=== PATIENT | male | born 1960 | race African-American/Black ===

== ENCOUNTER 2021-02-10 14:13 | Inpatient (IN) | payer OTHER ==
[2021-02-10 14:49] VITALS: BMI 27.6
[2021-02-10] MEDS ORDERED: BISMUTH SUBSALICYLATE 524 MG/30 ML PO PRN (16:37)
[2021-02-10] MEDS ORDERED: MAG HYDROX/AL HYDROX/SIMETH 30 ML UNIT-DOSE CUP PO PRN (16:37)
[2021-02-10] MEDS ORDERED: METHADONE HCL 10 MG TABLET (FOR DETOX USE ONLY) PO ONE (16:37)
[2021-02-10] MEDS ORDERED: diazePAM 5 MG TABLET PO PRN (16:37)
[2021-02-10] MEDS ORDERED: METHOCARBAMOL 500 MG TABLET PO PRN (16:37)
[2021-02-10] MEDS ORDERED: cloNIDine HCL 0.1 MG TABLET PO PRN (16:37)
[2021-02-10] MEDS ORDERED: NICOTINE POLACRILEX 2 MG GUM BUC PRN (16:37)
[2021-02-10] MEDS ORDERED: MAGNESIUM HYDROX 2400MG/30ML ORAL SUSPENSION 30 ML CUP PO PRN (16:37)
[2021-02-10] MEDS ORDERED: MENTHOL/PHENOL 1 EACH UD MM PRN (16:37)
[2021-02-10] MEDS ORDERED: ACETAMINOPHEN 325 MG TABLET (FP) PO PRN ×2 (16:37)
[2021-02-10] MEDS ORDERED: MAGNESIUM CITRATE 300 ML BOTTLE PO PRN (16:37)
[2021-02-10] MEDS ORDERED: IBUPROFEN 400 MG TABLET (FP) PO PRN (16:37)
[2021-02-10] MEDS ORDERED: NALOXONE HCL 0.4 MG/ML VIAL IM PRN (16:37)
[2021-02-10] MEDS: diazePAM 5 MG TABLET PO SCH ×2 (18:34→22:19)
[2021-02-10] MEDS ORDERED: MELATONIN 5 MG TABLETS PO SCH (22:00)
[2021-02-10] MEDS: THIAMINE HCL 100 MG TABLET (FP) PO SCH (22:19)
[2021-02-10] MEDS ORDERED: TRIMETHOBENZAMIDE HCL 200MG/2ML INJ IM ONE (22:55)
[2021-02-10] MEDS ORDERED: HYDROCORTISONE 1% TOPICAL CREAM 30 GM TUBE TP PRN (22:57)
[2021-02-11] MEDS: diazePAM 5 MG TABLET PO SCH ×4 (05:46→22:35)
[2021-02-11 09:29] LABS: HEMATOCRIT 42.9 % (35.4-49); HEMOGLOBIN 14.7 GM/dL (11.7-16.9); MCH 29.3 pg (25.7-33.7); MCHC 34.2 g/dl (32.0-35.9); MEAN CELL VOLUME 85.8 fl (80-96); MEAN PLT VOLUME 9.7 fl (7.5-11.1); PLATELET COUNT 175 10^3/uL (134-434); RDW 14.3 % (11.9-15.9)
[2021-02-11] MEDS ORDERED: METHADONE HCL 5 MG TABLET (FOR DETOX USE ONLY) ONE (09:32)
[2021-02-11] MEDS ORDERED: METHADONE HCL 10 MG TABLET (FOR DETOX USE ONLY) ONE (09:32)
[2021-02-11] MEDS ORDERED: METHADONE (DETOX) 20 MG, METHADONE (DETOX) 5 MG PO ONE (10:00)
[2021-02-11 10:04] LABS: CALCIUM 8.6 mg/dL (8.5-10.1)
[2021-02-11 10:05] LABS: ALBUMIN 3.5 g/dl (3.4-5.0); BLOOD UREA NITROGEN 14.6 mg/dL (7-18)
[2021-02-11 10:10] LABS: BILIRUBIN,TOTAL 0.7 mg/dL (0.2-1); TOT PROT 6.3 g/dl (6.4-8.2)
[2021-02-11] MEDS ORDERED: MELATONIN 5 MG TABLETS PO PRN ×2 (10:18→10:46)
[2021-02-11] MEDS: PRENATAL VITAMINS W/ FOLIC ACID TABLET (FP) PO SCH (10:31)
[2021-02-11] MEDS: NICOTINE 7 MG/24 HOURS TOPICAL PATCH TD SCH (10:34)
[2021-02-11] MEDS: amLODIPine BESYLATE 10 MG TABLET (FP) PO SCH (15:46)
[2021-02-11] MEDS: THIAMINE HCL 100 MG TABLET (FP) PO SCH (22:35)
[2021-02-12] MEDS: diazePAM 5 MG TABLET PO SCH ×3 (06:08→23:05)
[2021-02-12] MEDS: NICOTINE 7 MG/24 HOURS TOPICAL PATCH TD SCH (09:22)
[2021-02-12] MEDS: amLODIPine BESYLATE 10 MG TABLET (FP) PO SCH (09:22)
[2021-02-12] MEDS: PRENATAL VITAMINS W/ FOLIC ACID TABLET (FP) PO SCH (09:23)
[2021-02-12] MEDS ORDERED: METHADONE HCL 10 MG TABLET (FOR DETOX USE ONLY) PO ONE (10:00)
[2021-02-12] MEDS: THIAMINE HCL 100 MG TABLET (FP) PO SCH (23:05)
[2021-02-13] MEDS ORDERED: diazePAM 5 MG TABLET PO SCH (06:00)
[2021-02-13] MEDS: amLODIPine BESYLATE 10 MG TABLET (FP) PO SCH (09:10)
[2021-02-13] MEDS: PRENATAL VITAMINS W/ FOLIC ACID TABLET (FP) PO SCH (09:11)
[2021-02-13] MEDS: NICOTINE 7 MG/24 HOURS TOPICAL PATCH TD SCH (09:12)
[2021-02-13 09:25] VITALS: TEMP 97
[2021-02-13 09:56] VITALS: BP 125/92; PULSE 92
[2021-02-13] MEDS ORDERED: METHADONE (DETOX) 10 MG, METHADONE (DETOX) 5 MG PO ONE (10:00)
[2021-02-14] MEDS ORDERED: diazePAM 5 MG TABLET PO ONE (06:00)
[2021-02-14] MEDS ORDERED: METHADONE HCL 10 MG TABLET (FOR DETOX USE ONLY) PO ONE (10:00)
[2021-02-15] MEDS ORDERED: METHADONE HCL 5 MG TABLET (FOR DETOX USE ONLY) PO ONE (06:00)
== END 2021-02-13 09:45 | disposition home or self-care (01) | DRG 773 ==
LOC: YASAS 14:13 → Y6N 16:33
PROVIDERS: ADMIT Allergy & Immunology; ATTEND Allergy & Immunology
PROC: HZ2ZZZZ Detoxification Services for Substance Abuse Treatment (ICD-10-PCS; principal; 2021-02-10)
DX: F10.230 Alcohol dependence with withdrawal, uncomplicated (principal); F11.23 Opioid dependence with withdrawal; F14.20 Cocaine dependence, uncomplicated; F12.10 Cannabis abuse, uncomplicated; F17.213 Nicotine dependence, cigarettes, with withdrawal; F19.24 Other psychoactive substance dependence with psychoactive substance-induced mood disorder; E78.2 Mixed hyperlipidemia; E11.9 Type 2 diabetes mellitus without complications; I10 Essential (primary) hypertension; K21.9 Gastro-esophageal reflux disease without esophagitis; M19.90 Unspecified osteoarthritis, unspecified site; Z20.2 Contact with and (suspected) exposure to infections with a predominantly sexual mode of transmission; Z98.890 Other specified postprocedural states
CPT/HCPCS: 36415; 71046-TC-FY; 80053; 85027; 86593; 86780; 93005; 93010; C9803; U0003; U0005

== ENCOUNTER 2021-11-19 15:07 | Inpatient (IN) | payer OTHER ==
[2021-11-19] MEDS ORDERED: guaiFENesin 200 MG/10 ML 10 ML UNIT-DOSE CUPS PO PRN (17:28)
[2021-11-19] MEDS ORDERED: MAGNESIUM HYDROX 2400MG/30ML ORAL SUSPENSION 30 ML CUP PO PRN (17:28)
[2021-11-19] MEDS ORDERED: NICOTINE 10 MG CARTRIDGE (INHALER) IH PRN (17:28)
[2021-11-19] MEDS ORDERED: MAGNESIUM CITRATE 300 ML BOTTLE PO PRN (17:28)
[2021-11-19] MEDS ORDERED: P-EPHED 60MG/TRIPROLIDI 2.5MG TABLET PO PRN (17:28)
[2021-11-19] MEDS ORDERED: LOPERAMIDE HCL 2 MG CAPSULE PO PRN (17:28)
[2021-11-19] MEDS ORDERED: MAG HYDROX/AL HYDROX/SIMETH 30 ML UNIT-DOSE CUP PO PRN (17:28)
[2021-11-19] MEDS ORDERED: NICOTINE POLACRILEX 2 MG GUM BC PRN (17:28)
[2021-11-19 21:29] VITALS: BMI 27.6
[2021-11-19] MEDS: THIAMINE HCL 100 MG TABLET (FP) PO SCH (22:08)
[2021-11-19] MEDS: hydrOXYzine PAMOATE 25 MG CAPSULE (FP) PO PRN (22:09)
[2021-11-19] MEDS: MELATONIN 5 MG TABLETS PO PRN (22:09)
[2021-11-20] MEDS: metFORMIN HCL 500 MG TABLET (FP) PO SCH ×2 (06:45→16:50)
[2021-11-20] MEDS: IBUPROFEN 400 MG TABLET (FP) PO PRN ×2 (08:09→16:50)
[2021-11-20] MEDS: PRENATAL VITAMINS W/ FOLIC ACID TABLET (FP) PO SCH (09:57)
[2021-11-20] MEDS: amLODIPine BESYLATE 10 MG TABLET (FP) PO SCH (09:57)
[2021-11-20] MEDS ORDERED: SERTRALINE HCL 50 MG TABLET (FP) PO ONE (11:26)
[2021-11-20] MEDS: LIDOCAINE 5% TOPICAL PATCH TP SCH (14:25)
[2021-11-20] MEDS: BACITRACIN 0.9 GM PACKET TP SCH (16:52)
[2021-11-20 17:10] LABS: CALCIUM 9.5 mg/dL (8.5-10.1)
[2021-11-20 17:11] LABS: ALBUMIN 3.6 g/dl (3.4-5.0); BLOOD UREA NITROGEN 18.6 mg/dL (7-18); HEMATOCRIT 47.5 % (35.4-49); HEMOGLOBIN 15.9 GM/dL (11.7-16.9); MCH 28.8 pg (25.7-33.7); MCHC 33.5 g/dl (32.0-35.9); MEAN PLT VOLUME 9.9 fl (7.5-11.1); PLATELET COUNT 215 10^3/uL (134-434); RBC 5.52 M/mm3 (4.00-5.60); RDW 14.6 % (11.9-15.9)
[2021-11-20 17:14] LABS: CREATININE 1.4 mg/dL (0.55-1.3)
[2021-11-20 17:16] LABS: BILIRUBIN,TOTAL 0.6 mg/dL (0.2-1)
[2021-11-20] MEDS: THIAMINE HCL 100 MG TABLET (FP) PO SCH (21:22)
[2021-11-20] MEDS: LIDOCAINE PATCH REMOVAL MC SCH (21:22)
[2021-11-20] MEDS: hydrOXYzine PAMOATE 25 MG CAPSULE (FP) PO PRN (21:23)
[2021-11-20] MEDS: MELATONIN 5 MG TABLETS PO PRN (21:23)
[2021-11-21] MEDS: metFORMIN HCL 500 MG TABLET (FP) PO SCH ×2 (06:32→16:51)
[2021-11-21] MEDS: LIDOCAINE 5% TOPICAL PATCH TP SCH (09:53)
[2021-11-21] MEDS: amLODIPine BESYLATE 10 MG TABLET (FP) PO SCH (09:53)
[2021-11-21] MEDS: PRENATAL VITAMINS W/ FOLIC ACID TABLET (FP) PO SCH (09:53)
[2021-11-21] MEDS: SERTRALINE HCL 50 MG TABLET (FP) PO SCH (09:54)
[2021-11-21] MEDS: hydrOXYzine PAMOATE 25 MG CAPSULE (FP) PO PRN ×2 (09:55→21:30)
[2021-11-21] MEDS: IBUPROFEN 400 MG TABLET (FP) PO PRN (09:55)
[2021-11-21] MEDS: BACITRACIN 0.9 GM PACKET TP SCH (10:06)
[2021-11-21 10:13] LABS: EPI CELLS 12 /uL (0-25.1); HYALINE CASTS 2 /uL (0-3.1); URINE APPEARANCE CLEAR; URINE BACTERIA 31 /uL (0-1359); URINE BILIRUBIN NEGATIVE (NEGATIVE); URINE COLOR YELLOW; URINE GLUCOSE (UA) NEGATIVE (NEGATIVE); URINE KETONE NEGATIVE (NEGATIVE); URINE LEUK ESTERASE TRACE (NEGATIVE); URINE NITRITE NEGATIVE (NEGATIVE); URINE PROTEIN NEGATIVE (NEGATIVE); URINE RBC 11 /uL (0-23.9); URINE UROBILINOGEN 0.2 mg/dL (0.2-1.0); URINE WBC 44 /uL (0-25.8)
[2021-11-21] MEDS: ACETAMINOPHEN 325 MG TABLET (FP) PO PRN (15:45)
[2021-11-21] MEDS: LIDOCAINE PATCH REMOVAL MC SCH (21:29)
[2021-11-21] MEDS: MELATONIN 5 MG TABLETS PO PRN (21:30)
[2021-11-21] MEDS: THIAMINE HCL 100 MG TABLET (FP) PO SCH (21:30)
[2021-11-22] MEDS: metFORMIN HCL 500 MG TABLET (FP) PO SCH ×2 (06:45→16:28)
[2021-11-22] MEDS: BACITRACIN 0.9 GM PACKET TP SCH (10:37)
[2021-11-22] MEDS: PRENATAL VITAMINS W/ FOLIC ACID TABLET (FP) PO SCH (10:40)
[2021-11-22] MEDS: LIDOCAINE 5% TOPICAL PATCH TP SCH (10:40)
[2021-11-22] MEDS: SERTRALINE HCL 50 MG TABLET (FP) PO SCH (10:41)
[2021-11-22] MEDS: amLODIPine BESYLATE 10 MG TABLET (FP) PO SCH (10:41)
[2021-11-22] MEDS: IBUPROFEN 400 MG TABLET (FP) PO PRN (10:42)
[2021-11-22] MEDS: MELATONIN 5 MG TABLETS PO PRN (21:07)
[2021-11-22] MEDS: THIAMINE HCL 100 MG TABLET (FP) PO SCH (21:07)
[2021-11-22] MEDS: METHOCARBAMOL 500 MG TABLET PO PRN (21:07)
[2021-11-22] MEDS: hydrOXYzine PAMOATE 25 MG CAPSULE (FP) PO PRN (21:08)
[2021-11-22] MEDS: LIDOCAINE PATCH REMOVAL MC SCH (21:08)
[2021-11-23] MEDS: metFORMIN HCL 500 MG TABLET (FP) PO SCH ×2 (06:26→17:18)
[2021-11-23] MEDS: PRENATAL VITAMINS W/ FOLIC ACID TABLET (FP) PO SCH (09:58)
[2021-11-23] MEDS: BACITRACIN 0.9 GM PACKET TP SCH (09:58)
[2021-11-23] MEDS: amLODIPine BESYLATE 10 MG TABLET (FP) PO SCH (09:59)
[2021-11-23] MEDS: LIDOCAINE 5% TOPICAL PATCH TP SCH (09:59)
[2021-11-23] MEDS: SERTRALINE HCL 50 MG TABLET (FP) PO SCH (09:59)
[2021-11-23] MEDS: METHOCARBAMOL 500 MG TABLET PO PRN (10:01)
[2021-11-23] MEDS: IBUPROFEN 400 MG TABLET (FP) PO PRN (10:01)
[2021-11-23] MEDS: hydrOXYzine PAMOATE 25 MG CAPSULE (FP) PO PRN ×2 (10:01→21:21)
[2021-11-23] MEDS: LIDOCAINE PATCH REMOVAL MC SCH (21:21)
[2021-11-23] MEDS: THIAMINE HCL 100 MG TABLET (FP) PO SCH (21:21)
[2021-11-23] MEDS: MELATONIN 5 MG TABLETS PO PRN (21:21)
[2021-11-24 00:07] LABS: SARS-CoV-2 NAA Not Detected (Not Detected)
[2021-11-24] MEDS: metFORMIN HCL 500 MG TABLET (FP) PO SCH ×2 (06:15→16:57)
[2021-11-24] MEDS: BACITRACIN 0.9 GM PACKET TP SCH (10:14)
[2021-11-24] MEDS: LIDOCAINE 5% TOPICAL PATCH TP SCH (10:14)
[2021-11-24] MEDS: PRENATAL VITAMINS W/ FOLIC ACID TABLET (FP) PO SCH (10:14)
[2021-11-24] MEDS: amLODIPine BESYLATE 10 MG TABLET (FP) PO SCH (10:15)
[2021-11-24] MEDS: SERTRALINE HCL 50 MG TABLET (FP) PO SCH (10:15)
[2021-11-24] MEDS: IBUPROFEN 400 MG TABLET (FP) PO PRN (13:35)
[2021-11-24 15:19] LABS: HIV INTERPRETATION NEGATIVE (NEGATIVE)
[2021-11-24] MEDS: THIAMINE HCL 100 MG TABLET (FP) PO SCH (21:17)
[2021-11-24] MEDS: LIDOCAINE PATCH REMOVAL MC SCH (21:17)
[2021-11-24] MEDS: METHOCARBAMOL 500 MG TABLET PO PRN (21:18)
[2021-11-24] MEDS: hydrOXYzine PAMOATE 25 MG CAPSULE (FP) PO PRN (21:18)
[2021-11-24] MEDS: MELATONIN 5 MG TABLETS PO PRN (21:18)
[2021-11-25] MEDS: metFORMIN HCL 500 MG TABLET (FP) PO SCH ×2 (06:19→18:05)
[2021-11-25] MEDS: PRENATAL VITAMINS W/ FOLIC ACID TABLET (FP) PO SCH (10:36)
[2021-11-25] MEDS: SERTRALINE HCL 50 MG TABLET (FP) PO SCH (10:36)
[2021-11-25] MEDS: hydrOXYzine PAMOATE 25 MG CAPSULE (FP) PO PRN ×2 (10:36→21:21)
[2021-11-25] MEDS: amLODIPine BESYLATE 10 MG TABLET (FP) PO SCH (10:36)
[2021-11-25] MEDS: LIDOCAINE 5% TOPICAL PATCH TP SCH (10:36)
[2021-11-25] MEDS: LIDOCAINE PATCH REMOVAL MC SCH (21:20)
[2021-11-25] MEDS: MELATONIN 5 MG TABLETS PO PRN (21:21)
[2021-11-25] MEDS: THIAMINE HCL 100 MG TABLET (FP) PO SCH (21:21)
[2021-11-25] MEDS: METHOCARBAMOL 500 MG TABLET PO PRN (21:21)
[2021-11-26] MEDS: metFORMIN HCL 500 MG TABLET (FP) PO SCH ×2 (07:04→17:02)
[2021-11-26] MEDS: LIDOCAINE 5% TOPICAL PATCH TP SCH (10:08)
[2021-11-26] MEDS: PRENATAL VITAMINS W/ FOLIC ACID TABLET (FP) PO SCH (10:08)
[2021-11-26] MEDS: amLODIPine BESYLATE 10 MG TABLET (FP) PO SCH (10:09)
[2021-11-26] MEDS: SERTRALINE HCL 50 MG TABLET (FP) PO SCH (10:09)
[2021-11-26] MEDS: METHOCARBAMOL 500 MG TABLET PO PRN ×2 (10:11→21:32)
[2021-11-26] MEDS: hydrOXYzine PAMOATE 25 MG CAPSULE (FP) PO PRN ×2 (10:11→21:32)
[2021-11-26] MEDS: IBUPROFEN 400 MG TABLET (FP) PO PRN (17:01)
[2021-11-26] MEDS: LIDOCAINE PATCH REMOVAL MC SCH (21:32)
[2021-11-26] MEDS: THIAMINE HCL 100 MG TABLET (FP) PO SCH (21:32)
[2021-11-26] MEDS: MELATONIN 5 MG TABLETS PO PRN (21:33)
[2021-11-27] MEDS: metFORMIN HCL 500 MG TABLET (FP) PO SCH ×2 (06:20→17:44)
[2021-11-27] MEDS: amLODIPine BESYLATE 10 MG TABLET (FP) PO SCH (10:13)
[2021-11-27] MEDS: hydrOXYzine PAMOATE 25 MG CAPSULE (FP) PO PRN ×2 (10:13→21:19)
[2021-11-27] MEDS: LIDOCAINE 5% TOPICAL PATCH TP SCH (10:13)
[2021-11-27] MEDS: METHOCARBAMOL 500 MG TABLET PO PRN ×2 (10:13→21:19)
[2021-11-27] MEDS: PRENATAL VITAMINS W/ FOLIC ACID TABLET (FP) PO SCH (10:13)
[2021-11-27] MEDS: SERTRALINE HCL 50 MG TABLET (FP) PO SCH (10:14)
[2021-11-27] MEDS: IBUPROFEN 400 MG TABLET (FP) PO PRN (17:44)
[2021-11-27] MEDS: LIDOCAINE PATCH REMOVAL MC SCH (21:18)
[2021-11-27] MEDS: MELATONIN 5 MG TABLETS PO PRN (21:18)
[2021-11-27] MEDS: THIAMINE HCL 100 MG TABLET (FP) PO SCH (21:18)
[2021-11-28] MEDS: metFORMIN HCL 500 MG TABLET (FP) PO SCH ×2 (06:33→18:07)
[2021-11-28] MEDS: PRENATAL VITAMINS W/ FOLIC ACID TABLET (FP) PO SCH (09:58)
[2021-11-28] MEDS: LIDOCAINE 5% TOPICAL PATCH TP SCH (09:58)
[2021-11-28] MEDS: SERTRALINE HCL 50 MG TABLET (FP) PO SCH (09:59)
[2021-11-28] MEDS: amLODIPine BESYLATE 10 MG TABLET (FP) PO SCH (09:59)
[2021-11-28] MEDS: METHOCARBAMOL 500 MG TABLET PO PRN ×2 (10:00→21:40)
[2021-11-28] MEDS: THIAMINE HCL 100 MG TABLET (FP) PO SCH (21:39)
[2021-11-28] MEDS: IBUPROFEN 400 MG TABLET (FP) PO PRN (21:40)
[2021-11-28] MEDS: MELATONIN 5 MG TABLETS PO PRN (21:41)
[2021-11-28] MEDS: LIDOCAINE PATCH REMOVAL MC SCH (22:14)
[2021-11-29] MEDS: metFORMIN HCL 500 MG TABLET (FP) PO SCH ×2 (06:14→19:56)
[2021-11-29] MEDS: LIDOCAINE 5% TOPICAL PATCH TP SCH (10:17)
[2021-11-29] MEDS: SERTRALINE HCL 50 MG TABLET (FP) PO SCH (10:17)
[2021-11-29] MEDS: PRENATAL VITAMINS W/ FOLIC ACID TABLET (FP) PO SCH (10:18)
[2021-11-29] MEDS: amLODIPine BESYLATE 10 MG TABLET (FP) PO SCH (10:18)
[2021-11-29] MEDS: LIDOCAINE PATCH REMOVAL MC SCH (21:24)
[2021-11-29] MEDS: hydrOXYzine PAMOATE 25 MG CAPSULE (FP) PO PRN (21:24)
[2021-11-29] MEDS: THIAMINE HCL 100 MG TABLET (FP) PO SCH (21:24)
[2021-11-29] MEDS: MELATONIN 5 MG TABLETS PO PRN (21:24)
[2021-11-29] MEDS: METHOCARBAMOL 500 MG TABLET PO PRN (21:24)
[2021-11-30] MEDS: metFORMIN HCL 500 MG TABLET (FP) PO SCH ×2 (05:59→17:04)
[2021-11-30] MEDS: PRENATAL VITAMINS W/ FOLIC ACID TABLET (FP) PO SCH (10:39)
[2021-11-30] MEDS: SERTRALINE HCL 50 MG TABLET (FP) PO SCH (10:39)
[2021-11-30] MEDS: amLODIPine BESYLATE 10 MG TABLET (FP) PO SCH (10:39)
[2021-11-30] MEDS: LIDOCAINE 5% TOPICAL PATCH TP SCH (10:41)
[2021-11-30] MEDS: THIAMINE HCL 100 MG TABLET (FP) PO SCH (21:35)
[2021-11-30] MEDS: METHOCARBAMOL 500 MG TABLET PO PRN (21:35)
[2021-11-30] MEDS: LIDOCAINE PATCH REMOVAL MC SCH (21:35)
[2021-11-30] MEDS: MELATONIN 5 MG TABLETS PO PRN (21:35)
[2021-12-01] MEDS: metFORMIN HCL 500 MG TABLET (FP) PO SCH ×2 (06:11→16:50)
[2021-12-01] MEDS: LIDOCAINE 5% TOPICAL PATCH TP SCH (10:18)
[2021-12-01] MEDS: PRENATAL VITAMINS W/ FOLIC ACID TABLET (FP) PO SCH (10:18)
[2021-12-01] MEDS: amLODIPine BESYLATE 10 MG TABLET (FP) PO SCH (10:18)
[2021-12-01] MEDS: SERTRALINE HCL 50 MG TABLET (FP) PO SCH (10:18)
[2021-12-01] MEDS: IBUPROFEN 400 MG TABLET (FP) PO PRN (10:19)
[2021-12-01] MEDS: LIDOCAINE PATCH REMOVAL MC SCH (21:28)
[2021-12-01] MEDS: hydrOXYzine PAMOATE 25 MG CAPSULE (FP) PO PRN (21:29)
[2021-12-01] MEDS: MELATONIN 5 MG TABLETS PO PRN (21:29)
[2021-12-01] MEDS: THIAMINE HCL 100 MG TABLET (FP) PO SCH (21:29)
[2021-12-01] MEDS: METHOCARBAMOL 500 MG TABLET PO PRN (21:30)
[2021-12-02] MEDS: metFORMIN HCL 500 MG TABLET (FP) PO SCH ×2 (06:11→17:35)
[2021-12-02] MEDS: LIDOCAINE 5% TOPICAL PATCH TP SCH ×2 (10:06→12:17)
[2021-12-02] MEDS: METHOCARBAMOL 500 MG TABLET PO PRN ×2 (10:06→21:36)
[2021-12-02] MEDS: amLODIPine BESYLATE 10 MG TABLET (FP) PO SCH (10:06)
[2021-12-02] MEDS: SERTRALINE HCL 50 MG TABLET (FP) PO SCH (10:06)
[2021-12-02] MEDS: PRENATAL VITAMINS W/ FOLIC ACID TABLET (FP) PO SCH (10:06)
[2021-12-02] MEDS: IBUPROFEN 400 MG TABLET (FP) PO PRN (12:15)
[2021-12-02] MEDS: MELATONIN 5 MG TABLETS PO PRN (21:35)
[2021-12-02] MEDS: LIDOCAINE PATCH REMOVAL MC SCH (21:35)
[2021-12-02] MEDS: THIAMINE HCL 100 MG TABLET (FP) PO SCH (21:35)
[2021-12-03] MEDS: metFORMIN HCL 500 MG TABLET (FP) PO SCH ×2 (07:14→16:37)
[2021-12-03] MEDS: SERTRALINE HCL 50 MG TABLET (FP) PO SCH (10:07)
[2021-12-03] MEDS: amLODIPine BESYLATE 10 MG TABLET (FP) PO SCH (10:07)
[2021-12-03] MEDS: LIDOCAINE 5% TOPICAL PATCH TP SCH (10:07)
[2021-12-03] MEDS: PRENATAL VITAMINS W/ FOLIC ACID TABLET (FP) PO SCH (10:07)
[2021-12-03] MEDS: METHOCARBAMOL 500 MG TABLET PO PRN ×2 (10:08→21:27)
[2021-12-03] MEDS: IBUPROFEN 400 MG TABLET (FP) PO PRN (19:31)
[2021-12-03] MEDS: THIAMINE HCL 100 MG TABLET (FP) PO SCH (21:27)
[2021-12-03] MEDS: MELATONIN 5 MG TABLETS PO PRN (21:27)
[2021-12-03] MEDS: LIDOCAINE PATCH REMOVAL MC SCH (21:27)
[2021-12-04] MEDS: metFORMIN HCL 500 MG TABLET (FP) PO SCH ×2 (06:31→16:59)
[2021-12-04] MEDS: LIDOCAINE 5% TOPICAL PATCH TP SCH (09:51)
[2021-12-04] MEDS: PRENATAL VITAMINS W/ FOLIC ACID TABLET (FP) PO SCH (09:51)
[2021-12-04] MEDS: SERTRALINE HCL 50 MG TABLET (FP) PO SCH (09:52)
[2021-12-04] MEDS: amLODIPine BESYLATE 10 MG TABLET (FP) PO SCH (09:52)
[2021-12-04] MEDS: IBUPROFEN 400 MG TABLET (FP) PO PRN (09:53)
[2021-12-04] MEDS: METHOCARBAMOL 500 MG TABLET PO PRN ×2 (09:53→21:51)
[2021-12-04] MEDS: MELATONIN 5 MG TABLETS PO PRN (21:51)
[2021-12-04] MEDS: hydrOXYzine PAMOATE 25 MG CAPSULE (FP) PO PRN (21:51)
[2021-12-04] MEDS: THIAMINE HCL 100 MG TABLET (FP) PO SCH (21:51)
[2021-12-04] MEDS: LIDOCAINE PATCH REMOVAL MC SCH (21:51)
[2021-12-05] MEDS: metFORMIN HCL 500 MG TABLET (FP) PO SCH ×2 (08:46→16:30)
[2021-12-05] MEDS: amLODIPine BESYLATE 10 MG TABLET (FP) PO SCH (09:55)
[2021-12-05] MEDS: LIDOCAINE 5% TOPICAL PATCH TP SCH (09:55)
[2021-12-05] MEDS: PRENATAL VITAMINS W/ FOLIC ACID TABLET (FP) PO SCH (09:55)
[2021-12-05] MEDS: SERTRALINE HCL 50 MG TABLET (FP) PO SCH (09:55)
[2021-12-05] MEDS: IBUPROFEN 400 MG TABLET (FP) PO PRN (13:57)
[2021-12-05] MEDS: LIDOCAINE PATCH REMOVAL MC SCH (21:41)
[2021-12-05] MEDS: THIAMINE HCL 100 MG TABLET (FP) PO SCH (21:41)
[2021-12-05] MEDS: METHOCARBAMOL 500 MG TABLET PO PRN (21:41)
[2021-12-05] MEDS: MELATONIN 5 MG TABLETS PO PRN (21:41)
[2021-12-05] MEDS: hydrOXYzine PAMOATE 25 MG CAPSULE (FP) PO PRN (21:42)
[2021-12-06] MEDS: metFORMIN HCL 500 MG TABLET (FP) PO SCH ×2 (07:49→16:50)
[2021-12-06] MEDS: amLODIPine BESYLATE 10 MG TABLET (FP) PO SCH (10:28)
[2021-12-06] MEDS: LIDOCAINE 5% TOPICAL PATCH TP SCH (10:28)
[2021-12-06] MEDS: SERTRALINE HCL 50 MG TABLET (FP) PO SCH (10:28)
[2021-12-06] MEDS: PRENATAL VITAMINS W/ FOLIC ACID TABLET (FP) PO SCH (10:28)
[2021-12-06] MEDS: hydrOXYzine PAMOATE 25 MG CAPSULE (FP) PO PRN (21:52)
[2021-12-06] MEDS: LIDOCAINE PATCH REMOVAL MC SCH (21:52)
[2021-12-06] MEDS: MELATONIN 5 MG TABLETS PO PRN (21:52)
[2021-12-06] MEDS: METHOCARBAMOL 500 MG TABLET PO PRN (21:52)
[2021-12-06] MEDS: THIAMINE HCL 100 MG TABLET (FP) PO SCH (21:52)
[2021-12-06] MEDS: IBUPROFEN 400 MG TABLET (FP) PO PRN (21:54)
[2021-12-07] MEDS: metFORMIN HCL 500 MG TABLET (FP) PO SCH ×2 (06:07→17:08)
[2021-12-07] MEDS: IBUPROFEN 400 MG TABLET (FP) PO PRN ×2 (10:16→17:48)
[2021-12-07] MEDS: PRENATAL VITAMINS W/ FOLIC ACID TABLET (FP) PO SCH (10:16)
[2021-12-07] MEDS: amLODIPine BESYLATE 10 MG TABLET (FP) PO SCH (10:16)
[2021-12-07] MEDS: METHOCARBAMOL 500 MG TABLET PO PRN ×2 (10:16→21:08)
[2021-12-07] MEDS: SERTRALINE HCL 50 MG TABLET (FP) PO SCH (10:16)
[2021-12-07] MEDS: hydrOXYzine PAMOATE 25 MG CAPSULE (FP) PO PRN ×2 (10:16→21:07)
[2021-12-07] MEDS: LIDOCAINE 5% TOPICAL PATCH TP SCH (10:16)
[2021-12-07] MEDS: MELATONIN 5 MG TABLETS PO PRN (21:07)
[2021-12-07] MEDS: THIAMINE HCL 100 MG TABLET (FP) PO SCH (21:08)
[2021-12-07] MEDS: LIDOCAINE PATCH REMOVAL MC SCH (21:08)
[2021-12-08] MEDS: metFORMIN HCL 500 MG TABLET (FP) PO SCH ×2 (06:54→17:29)
[2021-12-08] MEDS: SERTRALINE HCL 50 MG TABLET (FP) PO SCH (10:14)
[2021-12-08] MEDS: PRENATAL VITAMINS W/ FOLIC ACID TABLET (FP) PO SCH (10:14)
[2021-12-08] MEDS: LIDOCAINE 5% TOPICAL PATCH TP SCH (10:15)
[2021-12-08] MEDS: amLODIPine BESYLATE 10 MG TABLET (FP) PO SCH (10:15)
[2021-12-08] MEDS: ACETAMINOPHEN 325 MG TABLET (FP) PO PRN (10:16)
[2021-12-08] MEDS: MELATONIN 5 MG TABLETS PO PRN (21:24)
[2021-12-08] MEDS: LIDOCAINE PATCH REMOVAL MC SCH (21:24)
[2021-12-08] MEDS: METHOCARBAMOL 500 MG TABLET PO PRN (21:24)
[2021-12-08] MEDS: THIAMINE HCL 100 MG TABLET (FP) PO SCH (21:24)
[2021-12-09] MEDS: metFORMIN HCL 500 MG TABLET (FP) PO SCH ×2 (07:24→17:12)
[2021-12-09] MEDS: SERTRALINE HCL 50 MG TABLET (FP) PO SCH (10:05)
[2021-12-09] MEDS: amLODIPine BESYLATE 10 MG TABLET (FP) PO SCH (10:05)
[2021-12-09] MEDS: PRENATAL VITAMINS W/ FOLIC ACID TABLET (FP) PO SCH (10:05)
[2021-12-09] MEDS: LIDOCAINE 5% TOPICAL PATCH TP SCH (10:06)
[2021-12-09] MEDS: METHOCARBAMOL 500 MG TABLET PO PRN (21:18)
[2021-12-09] MEDS: THIAMINE HCL 100 MG TABLET (FP) PO SCH (21:18)
[2021-12-09] MEDS: MELATONIN 5 MG TABLETS PO PRN (21:18)
[2021-12-09] MEDS: hydrOXYzine PAMOATE 25 MG CAPSULE (FP) PO PRN (21:18)
[2021-12-09] MEDS: IBUPROFEN 400 MG TABLET (FP) PO PRN (21:19)
[2021-12-09] MEDS: LIDOCAINE PATCH REMOVAL MC SCH (21:20)
[2021-12-10] MEDS: metFORMIN HCL 500 MG TABLET (FP) PO SCH ×2 (07:16→16:45)
[2021-12-10] MEDS: amLODIPine BESYLATE 10 MG TABLET (FP) PO SCH (10:04)
[2021-12-10] MEDS: SERTRALINE HCL 50 MG TABLET (FP) PO SCH (10:05)
[2021-12-10] MEDS: LIDOCAINE 5% TOPICAL PATCH TP SCH (10:05)
[2021-12-10] MEDS: PRENATAL VITAMINS W/ FOLIC ACID TABLET (FP) PO SCH (10:05)
[2021-12-10] MEDS: IBUPROFEN 400 MG TABLET (FP) PO PRN (16:46)
[2021-12-10] MEDS: THIAMINE HCL 100 MG TABLET (FP) PO SCH (21:20)
[2021-12-10] MEDS: METHOCARBAMOL 500 MG TABLET PO PRN (21:20)
[2021-12-10] MEDS: LIDOCAINE PATCH REMOVAL MC SCH (21:21)
[2021-12-11] MEDS: metFORMIN HCL 500 MG TABLET (FP) PO SCH ×2 (06:31→16:29)
[2021-12-11] MEDS: LIDOCAINE 5% TOPICAL PATCH TP SCH (10:10)
[2021-12-11] MEDS: PRENATAL VITAMINS W/ FOLIC ACID TABLET (FP) PO SCH (10:10)
[2021-12-11] MEDS: SERTRALINE HCL 50 MG TABLET (FP) PO SCH (10:10)
[2021-12-11] MEDS: amLODIPine BESYLATE 10 MG TABLET (FP) PO SCH (10:10)
[2021-12-11] MEDS: IBUPROFEN 400 MG TABLET (FP) PO PRN ×2 (10:11→21:22)
[2021-12-11] MEDS: METHOCARBAMOL 500 MG TABLET PO PRN ×2 (10:11→21:20)
[2021-12-11] MEDS: hydrOXYzine PAMOATE 25 MG CAPSULE (FP) PO PRN ×2 (10:12→21:20)
[2021-12-11] MEDS: ACETAMINOPHEN 325 MG TABLET (FP) PO PRN (12:32)
[2021-12-11] MEDS: MELATONIN 5 MG TABLETS PO PRN (21:20)
[2021-12-11] MEDS: THIAMINE HCL 100 MG TABLET (FP) PO SCH (21:20)
[2021-12-11] MEDS: LIDOCAINE PATCH REMOVAL MC SCH (21:21)
[2021-12-12] MEDS: metFORMIN HCL 500 MG TABLET (FP) PO SCH ×2 (07:16→16:35)
[2021-12-12] MEDS: IBUPROFEN 400 MG TABLET (FP) PO PRN ×2 (10:14→21:52)
[2021-12-12] MEDS: amLODIPine BESYLATE 10 MG TABLET (FP) PO SCH (10:14)
[2021-12-12] MEDS: hydrOXYzine PAMOATE 25 MG CAPSULE (FP) PO PRN (10:14)
[2021-12-12] MEDS: SERTRALINE HCL 50 MG TABLET (FP) PO SCH (10:14)
[2021-12-12] MEDS: PRENATAL VITAMINS W/ FOLIC ACID TABLET (FP) PO SCH (10:14)
[2021-12-12] MEDS: LIDOCAINE 5% TOPICAL PATCH TP SCH (10:14)
[2021-12-12] MEDS: METHOCARBAMOL 500 MG TABLET PO PRN ×2 (15:03→21:52)
[2021-12-12] MEDS: ACETAMINOPHEN 325 MG TABLET (FP) PO PRN (15:03)
[2021-12-12] MEDS: THIAMINE HCL 100 MG TABLET (FP) PO SCH (21:52)
[2021-12-12] MEDS: LIDOCAINE PATCH REMOVAL MC SCH (21:54)
[2021-12-13] MEDS: metFORMIN HCL 500 MG TABLET (FP) PO SCH ×2 (07:09→16:45)
[2021-12-13] MEDS: PRENATAL VITAMINS W/ FOLIC ACID TABLET (FP) PO SCH (10:13)
[2021-12-13] MEDS: amLODIPine BESYLATE 10 MG TABLET (FP) PO SCH (10:14)
[2021-12-13] MEDS: LIDOCAINE 5% TOPICAL PATCH TP SCH (10:14)
[2021-12-13] MEDS: SERTRALINE HCL 50 MG TABLET (FP) PO SCH (10:14)
[2021-12-13] MEDS: MELATONIN 5 MG TABLETS PO PRN (21:45)
[2021-12-13] MEDS: IBUPROFEN 400 MG TABLET (FP) PO PRN (21:45)
[2021-12-13] MEDS: LIDOCAINE PATCH REMOVAL MC SCH (21:45)
[2021-12-13] MEDS: hydrOXYzine PAMOATE 25 MG CAPSULE (FP) PO PRN (21:45)
[2021-12-13] MEDS: METHOCARBAMOL 500 MG TABLET PO PRN (21:46)
[2021-12-13] MEDS: THIAMINE HCL 100 MG TABLET (FP) PO SCH (21:46)
[2021-12-14] MEDS: metFORMIN HCL 500 MG TABLET (FP) PO SCH ×2 (06:23→16:46)
[2021-12-14] MEDS: amLODIPine BESYLATE 10 MG TABLET (FP) PO SCH (10:08)
[2021-12-14] MEDS: PRENATAL VITAMINS W/ FOLIC ACID TABLET (FP) PO SCH (10:08)
[2021-12-14] MEDS: SERTRALINE HCL 50 MG TABLET (FP) PO SCH (10:08)
[2021-12-14] MEDS: LIDOCAINE 5% TOPICAL PATCH TP SCH (10:09)
[2021-12-14] MEDS: IBUPROFEN 400 MG TABLET (FP) PO PRN (14:19)
[2021-12-14] MEDS: METHOCARBAMOL 500 MG TABLET PO PRN (14:19)
[2021-12-14] MEDS: hydrOXYzine PAMOATE 25 MG CAPSULE (FP) PO PRN (21:21)
[2021-12-14] MEDS: THIAMINE HCL 100 MG TABLET (FP) PO SCH (21:21)
[2021-12-14] MEDS: MELATONIN 5 MG TABLETS PO PRN (21:22)
[2021-12-14] MEDS: LIDOCAINE PATCH REMOVAL MC SCH (21:22)
[2021-12-14] MEDS: ACETAMINOPHEN 325 MG TABLET (FP) PO PRN (21:23)
[2021-12-15] MEDS: metFORMIN HCL 500 MG TABLET (FP) PO SCH ×2 (07:12→16:51)
[2021-12-15] MEDS: PRENATAL VITAMINS W/ FOLIC ACID TABLET (FP) PO SCH (09:50)
[2021-12-15] MEDS: amLODIPine BESYLATE 10 MG TABLET (FP) PO SCH (09:50)
[2021-12-15] MEDS: LIDOCAINE 5% TOPICAL PATCH TP SCH (09:50)
[2021-12-15] MEDS: IBUPROFEN 400 MG TABLET (FP) PO PRN ×2 (09:51→21:22)
[2021-12-15] MEDS: METHOCARBAMOL 500 MG TABLET PO PRN (09:51)
[2021-12-15] MEDS: SERTRALINE HCL 50 MG TABLET (FP) PO SCH (09:51)
[2021-12-15] MEDS: hydrOXYzine PAMOATE 25 MG CAPSULE (FP) PO PRN ×2 (09:52→21:20)
[2021-12-15] MEDS: ACETAMINOPHEN 325 MG TABLET (FP) PO PRN (15:00)
[2021-12-15] MEDS: THIAMINE HCL 100 MG TABLET (FP) PO SCH (21:20)
[2021-12-15] MEDS: LIDOCAINE PATCH REMOVAL MC SCH (21:21)
[2021-12-15] MEDS: MELATONIN 5 MG TABLETS PO PRN (21:21)
[2021-12-16] MEDS: metFORMIN HCL 500 MG TABLET (FP) PO SCH ×2 (06:22→17:01)
[2021-12-16] MEDS: PRENATAL VITAMINS W/ FOLIC ACID TABLET (FP) PO SCH (09:27)
[2021-12-16] MEDS: amLODIPine BESYLATE 10 MG TABLET (FP) PO SCH (09:27)
[2021-12-16] MEDS: SERTRALINE HCL 50 MG TABLET (FP) PO SCH (09:27)
[2021-12-16] MEDS: LIDOCAINE 5% TOPICAL PATCH TP SCH (09:27)
[2021-12-16] MEDS: METHOCARBAMOL 500 MG TABLET PO PRN ×2 (09:27→21:19)
[2021-12-16] MEDS: hydrOXYzine PAMOATE 25 MG CAPSULE (FP) PO PRN ×2 (09:27→21:18)
[2021-12-16] MEDS: IBUPROFEN 400 MG TABLET (FP) PO PRN ×2 (09:28→21:20)
[2021-12-16] MEDS: MELATONIN 5 MG TABLETS PO PRN (21:18)
[2021-12-16] MEDS: THIAMINE HCL 100 MG TABLET (FP) PO SCH (21:18)
[2021-12-16] MEDS: LIDOCAINE PATCH REMOVAL MC SCH (21:23)
[2021-12-17] MEDS: metFORMIN HCL 500 MG TABLET (FP) PO SCH ×2 (06:01→16:56)
[2021-12-17] MEDS: amLODIPine BESYLATE 10 MG TABLET (FP) PO SCH (10:10)
[2021-12-17] MEDS: PRENATAL VITAMINS W/ FOLIC ACID TABLET (FP) PO SCH (10:11)
[2021-12-17] MEDS: SERTRALINE HCL 50 MG TABLET (FP) PO SCH (10:11)
[2021-12-17] MEDS: LIDOCAINE 5% TOPICAL PATCH TP SCH (10:11)
[2021-12-17] MEDS: METHOCARBAMOL 500 MG TABLET PO PRN ×2 (11:43→21:54)
[2021-12-17] MEDS: IBUPROFEN 400 MG TABLET (FP) PO PRN ×2 (11:43→16:57)
[2021-12-17] MEDS: THIAMINE HCL 100 MG TABLET (FP) PO SCH (21:54)
[2021-12-17] MEDS: LIDOCAINE PATCH REMOVAL MC SCH (21:54)
[2021-12-17] MEDS: ACETAMINOPHEN 325 MG TABLET (FP) PO PRN (21:54)
[2021-12-17] MEDS: MELATONIN 5 MG TABLETS PO PRN (21:54)
[2021-12-18] MEDS: metFORMIN HCL 500 MG TABLET (FP) PO SCH (06:04)
[2021-12-18 06:50] VITALS: TEMP 96.9
[2021-12-18 09:16] VITALS: BP 128/74; PULSE 89
[2021-12-18] MEDS: amLODIPine BESYLATE 10 MG TABLET (FP) PO SCH (09:19)
[2021-12-18] MEDS: LIDOCAINE 5% TOPICAL PATCH TP SCH (09:19)
[2021-12-18] MEDS: SERTRALINE HCL 50 MG TABLET (FP) PO SCH (09:19)
[2021-12-18] MEDS: PRENATAL VITAMINS W/ FOLIC ACID TABLET (FP) PO SCH (09:19)
== END 2021-12-18 09:40 | disposition home or self-care (01) | DRG 772 ==
LOC: YASAS 15:07 → Y5N 20:58
PROVIDERS: ADMIT Allergy & Immunology; ATTEND Allergy & Immunology
PROC: HZ42ZZZ Group Counseling for Substance Abuse Treatment, Cognitive-Behavioral (ICD-10-PCS; principal; 2021-11-19)
DX: F14.20 Cocaine dependence, uncomplicated (principal); F17.210 Nicotine dependence, cigarettes, uncomplicated; F19.24 Other psychoactive substance dependence with psychoactive substance-induced mood disorder; F41.9 Anxiety disorder, unspecified; F32.A Depression, unspecified; E78.5 Hyperlipidemia, unspecified; I10 Essential (primary) hypertension; E11.9 Type 2 diabetes mellitus without complications; Z79.84 Long term (current) use of oral hypoglycemic drugs; K21.9 Gastro-esophageal reflux disease without esophagitis; M54.12 Radiculopathy, cervical region; M19.90 Unspecified osteoarthritis, unspecified site; Z86.19 Personal history of other infectious and parasitic diseases; Z98.890 Other specified postprocedural states; Z56.0 Unemployment, unspecified; Z59.00 Homelessness unspecified; S60.412A Abrasion of right middle finger, initial encounter; W55.03XA Scratched by cat, initial encounter; Y92.89 Other specified places as the place of occurrence of the external cause
CPT/HCPCS: 36415; 80053; 81003; 82962; 85027; 86593; 86780; 87086; 87389; C9803-CS; U0003; U0005

== ENCOUNTER 2022-02-06 17:22 | Inpatient (IN) | payer OTHER ==
[2022-02-06 18:42] VITALS: BMI 26.6
[2022-02-06] MEDS ORDERED: MAGNESIUM CITRATE 300 ML BOTTLE PO PRN (19:20)
[2022-02-06] MEDS ORDERED: MAGNESIUM HYDROX 2400MG/30ML ORAL SUSPENSION 30 ML CUP PO PRN (19:20)
[2022-02-06] MEDS ORDERED: MAG HYDROX/AL HYDROX/SIMETH 30 ML UNIT-DOSE CUP PO PRN (19:20)
[2022-02-06] MEDS ORDERED: guaiFENesin 200 MG/10 ML 10 ML UNIT-DOSE CUPS PO PRN (19:20)
[2022-02-06] MEDS ORDERED: P-EPHED 60MG/TRIPROLIDI 2.5MG TABLET PO PRN (19:20)
[2022-02-06] MEDS ORDERED: LOPERAMIDE HCL 2 MG CAPSULE PO PRN (19:20)
[2022-02-06] MEDS ORDERED: MELATONIN 5 MG TABLETS PO PRN (19:20)
[2022-02-06] MEDS ORDERED: NICOTINE POLACRILEX 2 MG GUM BC PRN (19:20)
[2022-02-06] MEDS ORDERED: NICOTINE 10 MG CARTRIDGE (INHALER) IH PRN (19:20)
[2022-02-06] MEDS: ACETAMINOPHEN 325 MG TABLET (FP) PO PRN (22:33)
[2022-02-07] MEDS: BACITRACIN 0.9 GM PACKET TP SCH ×3 (00:23→22:36)
[2022-02-07] MEDS: THIAMINE HCL 100 MG TABLET (FP) PO SCH ×2 (00:23→22:36)
[2022-02-07] MEDS: INSULIN SLIDING SCALE (NOVOLOG) 1 VIAL SQ SCH ×3 (00:25→17:45)
[2022-02-07] MEDS ORDERED: IBUPROFEN 400 MG TABLET (FP) PO ONE (02:37)
[2022-02-07] MEDS: ACETAMINOPHEN 325 MG TABLET (FP) PO PRN ×2 (02:46→13:28)
[2022-02-07] MEDS: metFORMIN HCL 500 MG TABLET (FP) PO SCH ×2 (06:59→16:58)
[2022-02-07] MEDS: AMOX TR/POT CLAV 875MG/125MG TABLETS (FP) PO SCH ×2 (07:04→18:10)
[2022-02-07] MEDS ORDERED: amLODIPine BESYLATE 5 MG TABLET (FP) ONE (10:15)
[2022-02-07] MEDS: amLODIPine BESYLATE 10 MG TABLET (FP) PO SCH (10:26)
[2022-02-07] MEDS: PRENATAL VITAMINS W/ FOLIC ACID TABLET (FP) PO SCH (10:58)
[2022-02-07 12:53] LABS: CALCIUM 9.2 mg/dL (8.5-10.1)
[2022-02-07 12:54] LABS: ALBUMIN 3.1 g/dl (3.4-5.0); BLOOD UREA NITROGEN 16.5 mg/dL (7-18)
[2022-02-07 12:58] LABS: CREATININE 1.2 mg/dL (0.55-1.3); TOT PROT 5.9 g/dl (6.4-8.2)
[2022-02-07 13:00] LABS: BILIRUBIN,TOTAL 0.4 mg/dL (0.2-1)
[2022-02-07 13:01] LABS: HEMATOCRIT 41.2 % (35.4-49); HEMOGLOBIN 14.1 GM/dL (11.7-16.9); MCH 29.2 pg (25.7-33.7); MCHC 34.1 g/dl (32.0-35.9); MEAN CELL VOLUME 85.7 fl (80-96); MEAN PLT VOLUME 9.7 fl (7.5-11.1); PLATELET COUNT 195 10^3/uL (134-434); RBC 4.81 M/mm3 (4.00-5.60); RDW 14.3 % (11.9-15.9); WHITE BLOOD COUNT 8.6 K/mm3 (4.0-10.0)
[2022-02-07] MEDS: hydrOXYzine PAMOATE 25 MG CAPSULE (FP) PO PRN (13:27)
[2022-02-07 13:49] LABS: HIV INTERPRETATION NEGATIVE (NEGATIVE)
[2022-02-08] MEDS: ACETAMINOPHEN 325 MG TABLET (FP) PO PRN (06:39)
[2022-02-08] MEDS: metFORMIN HCL 500 MG TABLET (FP) PO SCH ×2 (06:39→17:22)
[2022-02-08] MEDS: INSULIN SLIDING SCALE (NOVOLOG) 1 VIAL SQ SCH ×2 (06:50→17:23)
[2022-02-08] MEDS: AMOX TR/POT CLAV 875MG/125MG TABLETS (FP) PO SCH ×2 (10:22→17:22)
[2022-02-08] MEDS: amLODIPine BESYLATE 10 MG TABLET (FP) PO SCH (10:23)
[2022-02-08] MEDS: SERTRALINE HCL 50 MG TABLET (FP) PO SCH (10:23)
[2022-02-08] MEDS: BACITRACIN 0.9 GM PACKET TP SCH ×2 (10:23→23:46)
[2022-02-08] MEDS: PRENATAL VITAMINS W/ FOLIC ACID TABLET (FP) PO SCH (10:23)
[2022-02-08] MEDS: hydrOXYzine PAMOATE 25 MG CAPSULE (FP) PO PRN (13:17)
[2022-02-08 17:15] LABS: PH,URINE 6.5 (5.0-8.0); URINE APPEARANCE CLEAR; URINE BILIRUBIN NEGATIVE (NEGATIVE); URINE COLOR YELLOW; URINE GLUCOSE (UA) NEGATIVE (NEGATIVE); URINE KETONE NEGATIVE (NEGATIVE); URINE LEUK ESTERASE NEGATIVE (NEGATIVE); URINE NITRITE NEGATIVE (NEGATIVE); URINE PROTEIN NEGATIVE (NEGATIVE); URINE UROBILINOGEN 0.2 mg/dL (0.2-1.0)
[2022-02-08] MEDS: THIAMINE HCL 100 MG TABLET (FP) PO SCH (23:47)
[2022-02-09] MEDS: AMOX TR/POT CLAV 875MG/125MG TABLETS (FP) PO SCH ×2 (07:07→18:17)
[2022-02-09] MEDS: metFORMIN HCL 500 MG TABLET (FP) PO SCH ×2 (07:07→16:40)
[2022-02-09] MEDS: hydrOXYzine PAMOATE 25 MG CAPSULE (FP) PO PRN (07:08)
[2022-02-09] MEDS: INSULIN SLIDING SCALE (NOVOLOG) 1 VIAL SQ SCH ×2 (07:08→16:42)
[2022-02-09] MEDS: ACETAMINOPHEN 325 MG TABLET (FP) PO PRN (07:21)
[2022-02-09] MEDS: amLODIPine BESYLATE 10 MG TABLET (FP) PO SCH (10:35)
[2022-02-09] MEDS: PRENATAL VITAMINS W/ FOLIC ACID TABLET (FP) PO SCH (10:36)
[2022-02-09] MEDS: SERTRALINE HCL 50 MG TABLET (FP) PO SCH (10:36)
[2022-02-09] MEDS: BACITRACIN 0.9 GM PACKET TP SCH ×2 (10:37→23:40)
[2022-02-09] MEDS: NAPROXEN 500 MG TABLET PO SCH ×2 (16:09→23:40)
[2022-02-09] MEDS: THIAMINE HCL 100 MG TABLET (FP) PO SCH (23:40)
[2022-02-10] MEDS: ACETAMINOPHEN 325 MG TABLET (FP) PO PRN ×2 (06:14→16:40)
[2022-02-10] MEDS: hydrOXYzine PAMOATE 25 MG CAPSULE (FP) PO PRN ×2 (06:14→16:40)
[2022-02-10] MEDS: metFORMIN HCL 500 MG TABLET (FP) PO SCH ×2 (06:14→16:37)
[2022-02-10] MEDS: INSULIN SLIDING SCALE (NOVOLOG) 1 VIAL SQ SCH ×2 (06:35→16:41)
[2022-02-10] MEDS: AMOX TR/POT CLAV 875MG/125MG TABLETS (FP) PO SCH ×2 (08:03→17:04)
[2022-02-10] MEDS: SERTRALINE HCL 50 MG TABLET (FP) PO SCH (10:03)
[2022-02-10] MEDS: NAPROXEN 500 MG TABLET PO SCH ×2 (10:04→23:32)
[2022-02-10] MEDS: amLODIPine BESYLATE 10 MG TABLET (FP) PO SCH (10:04)
[2022-02-10] MEDS: PRENATAL VITAMINS W/ FOLIC ACID TABLET (FP) PO SCH (10:04)
[2022-02-10] MEDS: BACITRACIN 0.9 GM PACKET TP SCH ×2 (10:22→23:32)
[2022-02-10] MEDS: THIAMINE HCL 100 MG TABLET (FP) PO SCH (23:32)
[2022-02-11] MEDS: metFORMIN HCL 500 MG TABLET (FP) PO SCH ×2 (06:06→16:36)
[2022-02-11] MEDS: INSULIN SLIDING SCALE (NOVOLOG) 1 VIAL SQ SCH ×2 (06:06→16:38)
[2022-02-11] MEDS: AMOX TR/POT CLAV 875MG/125MG TABLETS (FP) PO SCH ×2 (07:36→17:24)
[2022-02-11] MEDS: PRENATAL VITAMINS W/ FOLIC ACID TABLET (FP) PO SCH (09:36)
[2022-02-11] MEDS: NAPROXEN 500 MG TABLET PO SCH ×2 (09:36→23:56)
[2022-02-11] MEDS: amLODIPine BESYLATE 10 MG TABLET (FP) PO SCH (09:36)
[2022-02-11] MEDS: SERTRALINE HCL 50 MG TABLET (FP) PO SCH (09:36)
[2022-02-11] MEDS: BACITRACIN 0.9 GM PACKET TP SCH ×2 (09:36→23:56)
[2022-02-11] MEDS: hydrOXYzine PAMOATE 25 MG CAPSULE (FP) PO PRN ×2 (09:37→16:36)
[2022-02-11] MEDS: LIDOCAINE 5% TOPICAL PATCH TP SCH (11:09)
[2022-02-11] MEDS: ACETAMINOPHEN 325 MG TABLET (FP) PO PRN (16:36)
[2022-02-11] MEDS: LIDOCAINE PATCH REMOVAL MC SCH (23:56)
[2022-02-11] MEDS: THIAMINE HCL 100 MG TABLET (FP) PO SCH (23:57)
[2022-02-12] MEDS: ACETAMINOPHEN 325 MG TABLET (FP) PO PRN (06:17)
[2022-02-12] MEDS: hydrOXYzine PAMOATE 25 MG CAPSULE (FP) PO PRN (06:18)
[2022-02-12] MEDS: metFORMIN HCL 500 MG TABLET (FP) PO SCH ×2 (06:19→17:05)
[2022-02-12] MEDS: INSULIN SLIDING SCALE (NOVOLOG) 1 VIAL SQ SCH ×2 (06:19→18:07)
[2022-02-12] MEDS: AMOX TR/POT CLAV 875MG/125MG TABLETS (FP) PO SCH ×2 (07:52→18:07)
[2022-02-12] MEDS: PRENATAL VITAMINS W/ FOLIC ACID TABLET (FP) PO SCH (10:14)
[2022-02-12] MEDS: LIDOCAINE 5% TOPICAL PATCH TP SCH (10:15)
[2022-02-12] MEDS: amLODIPine BESYLATE 10 MG TABLET (FP) PO SCH (10:15)
[2022-02-12] MEDS: NAPROXEN 500 MG TABLET PO SCH ×2 (10:15→21:16)
[2022-02-12] MEDS: SERTRALINE HCL 50 MG TABLET (FP) PO SCH (10:15)
[2022-02-12] MEDS: BACITRACIN 0.9 GM PACKET TP SCH ×2 (10:16→21:16)
[2022-02-12 10:54] LABS: TOTAL IRON BINDING CAPACITY 337 ug/dL (250-450)
[2022-02-12 10:55] LABS: IRON SERUM 134 ug/dL (50-175)
[2022-02-12] MEDS: LIDOCAINE PATCH REMOVAL MC SCH (21:16)
[2022-02-12] MEDS: THIAMINE HCL 100 MG TABLET (FP) PO SCH (21:17)
[2022-02-12] MEDS: MELATONIN 5 MG TABLETS PO PRN (21:17)
[2022-02-12] MEDS: MIRTAZAPINE 15 MG TABLET (FP) PO SCH (21:17)
[2022-02-13] MEDS: AMOX TR/POT CLAV 875MG/125MG TABLETS (FP) PO SCH ×2 (07:34→16:31)
[2022-02-13] MEDS: metFORMIN HCL 500 MG TABLET (FP) PO SCH ×2 (07:34→16:31)
[2022-02-13] MEDS: INSULIN SLIDING SCALE (NOVOLOG) 1 VIAL SQ SCH ×2 (07:35→16:33)
[2022-02-13] MEDS: BACITRACIN 0.9 GM PACKET TP SCH ×2 (10:41→21:32)
[2022-02-13] MEDS: LIDOCAINE 5% TOPICAL PATCH TP SCH (10:42)
[2022-02-13] MEDS: amLODIPine BESYLATE 10 MG TABLET (FP) PO SCH (10:42)
[2022-02-13] MEDS: SERTRALINE HCL 50 MG TABLET (FP) PO SCH (10:42)
[2022-02-13] MEDS: PRENATAL VITAMINS W/ FOLIC ACID TABLET (FP) PO SCH (10:42)
[2022-02-13] MEDS: NAPROXEN 500 MG TABLET PO SCH ×2 (10:42→21:32)
[2022-02-13] MEDS: hydrOXYzine PAMOATE 25 MG CAPSULE (FP) PO PRN ×2 (10:43→21:32)
[2022-02-13] MEDS: THIAMINE HCL 100 MG TABLET (FP) PO SCH (21:31)
[2022-02-13] MEDS: MELATONIN 5 MG TABLETS PO PRN (21:31)
[2022-02-13] MEDS: MIRTAZAPINE 15 MG TABLET (FP) PO SCH (21:33)
[2022-02-13] MEDS: LIDOCAINE PATCH REMOVAL MC SCH (21:44)
[2022-02-14] MEDS: INSULIN SLIDING SCALE (NOVOLOG) 1 VIAL SQ SCH ×2 (07:50→16:27)
[2022-02-14] MEDS: metFORMIN HCL 500 MG TABLET (FP) PO SCH ×2 (07:50→16:25)
[2022-02-14] MEDS: PRENATAL VITAMINS W/ FOLIC ACID TABLET (FP) PO SCH (09:45)
[2022-02-14] MEDS: amLODIPine BESYLATE 10 MG TABLET (FP) PO SCH (09:45)
[2022-02-14] MEDS: BACITRACIN 0.9 GM PACKET TP SCH ×2 (09:45→23:47)
[2022-02-14] MEDS: SERTRALINE HCL 50 MG TABLET (FP) PO SCH (09:45)
[2022-02-14] MEDS: NAPROXEN 500 MG TABLET PO SCH ×2 (09:45→23:47)
[2022-02-14] MEDS: LIDOCAINE 5% TOPICAL PATCH TP SCH (09:45)
[2022-02-14] MEDS: hydrOXYzine PAMOATE 25 MG CAPSULE (FP) PO PRN (09:46)
[2022-02-14] MEDS: ACETAMINOPHEN 325 MG TABLET (FP) PO PRN (16:26)
[2022-02-14] MEDS: MIRTAZAPINE 15 MG TABLET (FP) PO SCH (23:47)
[2022-02-14] MEDS: THIAMINE HCL 100 MG TABLET (FP) PO SCH (23:47)
[2022-02-14] MEDS: LIDOCAINE PATCH REMOVAL MC SCH (23:47)
[2022-02-15] MEDS: metFORMIN HCL 500 MG TABLET (FP) PO SCH ×2 (06:13→17:52)
[2022-02-15] MEDS: INSULIN SLIDING SCALE (NOVOLOG) 1 VIAL SQ SCH ×2 (06:13→17:53)
[2022-02-15] MEDS: PRENATAL VITAMINS W/ FOLIC ACID TABLET (FP) PO SCH (09:57)
[2022-02-15] MEDS: BACITRACIN 0.9 GM PACKET TP SCH ×2 (09:57→21:29)
[2022-02-15] MEDS: hydrOXYzine PAMOATE 25 MG CAPSULE (FP) PO PRN ×2 (09:57→13:54)
[2022-02-15] MEDS: amLODIPine BESYLATE 10 MG TABLET (FP) PO SCH (09:57)
[2022-02-15] MEDS: NAPROXEN 500 MG TABLET PO SCH ×2 (09:57→21:29)
[2022-02-15] MEDS: SERTRALINE HCL 50 MG TABLET (FP) PO SCH (09:57)
[2022-02-15] MEDS: LIDOCAINE 5% TOPICAL PATCH TP SCH (10:33)
[2022-02-15] MEDS: ACETAMINOPHEN 325 MG TABLET (FP) PO PRN (13:56)
[2022-02-15] MEDS: THIAMINE HCL 100 MG TABLET (FP) PO SCH (21:29)
[2022-02-15] MEDS: MIRTAZAPINE 15 MG TABLET (FP) PO SCH (21:29)
[2022-02-15] MEDS: LIDOCAINE PATCH REMOVAL MC SCH (21:31)
[2022-02-16] MEDS: INSULIN SLIDING SCALE (NOVOLOG) 1 VIAL SQ SCH ×2 (06:35→17:15)
[2022-02-16] MEDS: metFORMIN HCL 500 MG TABLET (FP) PO SCH ×2 (07:44→17:11)
[2022-02-16] MEDS: LIDOCAINE 5% TOPICAL PATCH TP SCH (09:55)
[2022-02-16] MEDS: NAPROXEN 500 MG TABLET PO SCH ×2 (09:55→21:24)
[2022-02-16] MEDS: SERTRALINE HCL 50 MG TABLET (FP) PO SCH (09:55)
[2022-02-16] MEDS: PRENATAL VITAMINS W/ FOLIC ACID TABLET (FP) PO SCH (09:55)
[2022-02-16] MEDS: amLODIPine BESYLATE 10 MG TABLET (FP) PO SCH (09:55)
[2022-02-16] MEDS: BACITRACIN 0.9 GM PACKET TP SCH ×2 (09:55→21:25)
[2022-02-16] MEDS: hydrOXYzine PAMOATE 25 MG CAPSULE (FP) PO PRN ×2 (14:44→21:25)
[2022-02-16] MEDS: ACETAMINOPHEN 325 MG TABLET (FP) PO PRN (14:44)
[2022-02-16] MEDS: THIAMINE HCL 100 MG TABLET (FP) PO SCH (21:25)
[2022-02-16] MEDS: MELATONIN 5 MG TABLETS PO PRN (21:25)
[2022-02-16] MEDS: MIRTAZAPINE 15 MG TABLET (FP) PO SCH (21:25)
[2022-02-16] MEDS: LIDOCAINE PATCH REMOVAL MC SCH (22:01)
[2022-02-17] MEDS: metFORMIN HCL 500 MG TABLET (FP) PO SCH ×2 (06:58→17:09)
[2022-02-17] MEDS: INSULIN SLIDING SCALE (NOVOLOG) 1 VIAL SQ SCH ×2 (06:58→17:12)
[2022-02-17] MEDS: hydrOXYzine PAMOATE 25 MG CAPSULE (FP) PO PRN ×2 (09:33→21:44)
[2022-02-17] MEDS: LIDOCAINE 5% TOPICAL PATCH TP SCH (09:34)
[2022-02-17] MEDS: amLODIPine BESYLATE 10 MG TABLET (FP) PO SCH (09:34)
[2022-02-17] MEDS: SERTRALINE HCL 50 MG TABLET (FP) PO SCH (09:34)
[2022-02-17] MEDS: NAPROXEN 500 MG TABLET PO SCH ×2 (09:34→21:44)
[2022-02-17] MEDS: PRENATAL VITAMINS W/ FOLIC ACID TABLET (FP) PO SCH (09:34)
[2022-02-17] MEDS: BACITRACIN 0.9 GM PACKET TP SCH ×2 (11:07→21:45)
[2022-02-17] MEDS: MIRTAZAPINE 15 MG TABLET (FP) PO SCH (21:44)
[2022-02-17] MEDS: LIDOCAINE PATCH REMOVAL MC SCH (21:44)
[2022-02-17] MEDS: MELATONIN 5 MG TABLETS PO PRN (21:45)
[2022-02-17] MEDS: THIAMINE HCL 100 MG TABLET (FP) PO SCH (21:45)
[2022-02-18] MEDS: metFORMIN HCL 500 MG TABLET (FP) PO SCH ×2 (06:32→17:06)
[2022-02-18] MEDS: INSULIN SLIDING SCALE (NOVOLOG) 1 VIAL SQ SCH ×2 (07:18→18:08)
[2022-02-18] MEDS: NAPROXEN 500 MG TABLET PO SCH ×2 (10:25→21:55)
[2022-02-18] MEDS: SERTRALINE HCL 50 MG TABLET (FP) PO SCH (10:25)
[2022-02-18] MEDS: PRENATAL VITAMINS W/ FOLIC ACID TABLET (FP) PO SCH (10:25)
[2022-02-18] MEDS: amLODIPine BESYLATE 10 MG TABLET (FP) PO SCH (10:25)
[2022-02-18] MEDS: LIDOCAINE 5% TOPICAL PATCH TP SCH (10:25)
[2022-02-18] MEDS: BACITRACIN 0.9 GM PACKET TP SCH ×2 (10:25→21:55)
[2022-02-18] MEDS: hydrOXYzine PAMOATE 25 MG CAPSULE (FP) PO PRN (10:26)
[2022-02-18] MEDS: MIRTAZAPINE 15 MG TABLET (FP) PO SCH (21:55)
[2022-02-18] MEDS: LIDOCAINE PATCH REMOVAL MC SCH (21:55)
[2022-02-18] MEDS: THIAMINE HCL 100 MG TABLET (FP) PO SCH (21:56)
[2022-02-19] MEDS: metFORMIN HCL 500 MG TABLET (FP) PO SCH ×2 (06:56→16:55)
[2022-02-19] MEDS: INSULIN SLIDING SCALE (NOVOLOG) 1 VIAL SQ SCH ×2 (07:00→16:55)
[2022-02-19] MEDS: amLODIPine BESYLATE 10 MG TABLET (FP) PO SCH (09:59)
[2022-02-19] MEDS: SERTRALINE HCL 50 MG TABLET (FP) PO SCH (09:59)
[2022-02-19] MEDS: LIDOCAINE 5% TOPICAL PATCH TP SCH (10:00)
[2022-02-19] MEDS: NAPROXEN 500 MG TABLET PO SCH (10:00)
[2022-02-19] MEDS: PRENATAL VITAMINS W/ FOLIC ACID TABLET (FP) PO SCH (10:00)
[2022-02-19] MEDS: BACITRACIN 0.9 GM PACKET TP SCH (10:00)
[2022-02-19 11:19] VITALS: BP 122/72; PULSE 69; TEMP 97.1
== END 2022-02-19 23:47 | disposition short-term general hospital (02) | DRG 772 ==
LOC: YASAS 17:22 → Y3W 02-07 10:21
PROVIDERS: ADMIT Allergy & Immunology; ATTEND Psychiatry & Neurology Pain Medicine
PROC: HZ42ZZZ Group Counseling for Substance Abuse Treatment, Cognitive-Behavioral (ICD-10-PCS; principal; 2022-02-07)
DX: F10.20 Alcohol dependence, uncomplicated (principal); F11.10 Opioid abuse, uncomplicated; F14.20 Cocaine dependence, uncomplicated; F12.20 Cannabis dependence, uncomplicated; F17.210 Nicotine dependence, cigarettes, uncomplicated; F19.282 Other psychoactive substance dependence with psychoactive substance-induced sleep disorder; F19.24 Other psychoactive substance dependence with psychoactive substance-induced mood disorder; I10 Essential (primary) hypertension; K21.9 Gastro-esophageal reflux disease without esophagitis; E11.9 Type 2 diabetes mellitus without complications; M16.11 Unilateral primary osteoarthritis, right hip; M17.11 Unilateral primary osteoarthritis, right knee; M54.50 Low back pain, unspecified; G89.29 Other chronic pain; S09.90XA Unspecified injury of head, initial encounter; W01.0XXA Fall on same level from slipping, tripping and stumbling without subsequent striking against object, initial encounter; Y92.230 Patient room in hospital as the place of occurrence of the external cause; S80.861D Insect bite (nonvenomous), right lower leg, subsequent encounter; S40.862D Insect bite (nonvenomous) of left upper arm, subsequent encounter; W57.XXXD Bitten or stung by nonvenomous insect and other nonvenomous arthropods, subsequent encounter
CPT/HCPCS: 36415; 80053; 81003; 82962; 83540; 83550; 85027; 86593; 86780; 87389; C9803-CS; U0003; U0005

== ENCOUNTER 2022-02-19 12:37 | Inpatient (IN) | payer OTHER ==
[2022-02-19 13:16] VITALS: BMI 26.4
[2022-02-19] MEDS ORDERED: ACETAMINOPHEN 500 MG TABLET (FP) PO ONE (14:13)
[2022-02-19] MEDS ORDERED: ACETAMINOPHEN 500 MG TABLET (FP) ONE (14:37)
[2022-02-19] MEDS ORDERED: LORazepam 2 MG/ML SDV VIAL IM STA (19:11)
[2022-02-19 19:33] LABS: BASO % 1.1 % (0-2.0); EOS % 6.8 % (0-4.5); HEMATOCRIT 46.7 % (35.4-49); HEMOGLOBIN 15.3 GM/dL (11.7-16.9); LYMPH % 21.7 % (8-40); MCH 27.9 pg (25.7-33.7); MCHC 32.7 g/dl (32.0-35.9); MEAN CELL VOLUME 85.4 fl (80-96); MEAN PLT VOLUME 8.8 fl (7.5-11.1); MONO % 7.1 % (3.8-10.2); NEUT % 63.3 % (42.8-82.8); PLATELET COUNT 207 10^3/uL (134-434); RBC 5.47 M/mm3 (4.00-5.60); RDW 13.9 % (11.9-15.9); WHITE BLOOD COUNT 11.8 K/mm3 (4.0-10.0)
[2022-02-19 19:35] LABS: PROTHROMBIN TIME (PATIENT) 11.5 SEC (9.7-13.0)
[2022-02-19 19:52] LABS: BLOOD UREA NITROGEN 17.8 mg/dL (7-18); CALCIUM 9.5 mg/dL (8.5-10.1)
[2022-02-19 19:56] LABS: TOT PROT 6.7 g/dl (6.4-8.2)
[2022-02-19 19:57] LABS: BILIRUBIN,TOTAL 0.7 mg/dL (0.2-1)
[2022-02-19 20:04] LABS: ALBUMIN 3.7 g/dl (3.4-5.0)
[2022-02-20] MEDS ORDERED: LORazepam 2 MG/ML SDV VIAL IVPUSH PRN (00:49)
[2022-02-20] MEDS ORDERED: INSULIN SLIDING SCALE (NOVOLOG) 1 VIAL SQ SCH (07:00)
[2022-02-20 07:43] LABS: BASO % 1.2 % (0-2.0); EOS % 9.9 % (0-4.5); HEMATOCRIT 45.1 % (35.4-49); LYMPH % 22.3 % (8-40); MCH 28.5 pg (25.7-33.7); MCHC 33.4 g/dl (32.0-35.9); MEAN CELL VOLUME 85.3 fl (80-96); MEAN PLT VOLUME 9.1 fl (7.5-11.1); MONO % 7.6 % (3.8-10.2); PLATELET COUNT 202 10^3/uL (134-434); RBC 5.28 M/mm3 (4.00-5.60); RDW 14.2 % (11.9-15.9); WHITE BLOOD COUNT 8.9 K/mm3 (4.0-10.0)
[2022-02-20 08:19] LABS: ALBUMIN 3.3 g/dl (3.4-5.0); BLOOD UREA NITROGEN 16.8 mg/dL (7-18)
[2022-02-20 08:20] LABS: PHOSPHOROUS 4.5 mg/dL (2.5-4.9); TOT PROT 6.1 g/dl (6.4-8.2)
[2022-02-20 08:22] LABS: BILIRUBIN,TOTAL 0.5 mg/dL (0.2-1); CREATININE 1.1 mg/dL (0.55-1.3)
[2022-02-20] MEDS ORDERED: FOLIC ACID 1 MG TABLET (FP) ONE (09:23)
[2022-02-20] MEDS ORDERED: ENOXAPARIN NA (PORCINE) 40 MG/0.4 ML DISP.SYRIN SQ ONE (09:24)
[2022-02-20] MEDS ORDERED: FOLIC ACID 1 MG TABLET (FP) PO SCH (10:00)
[2022-02-20] MEDS ORDERED: ENOXAPARIN NA (PORCINE) 40 MG/0.4 ML DISP.SYRIN SQ SCH (10:00)
[2022-02-20 13:40] VITALS: BP 129/65; PULSE 65; TEMP 99.1
== END 2022-02-20 13:50 | disposition home or self-care (01) | DRG 347 ==
LOC: JER 12:37 → JERBED 22:14
PROVIDERS: ADMIT Internal Medicine; ATTEND Allergy & Immunology
DX: M50.20 Other cervical disc displacement, unspecified cervical region (principal); I10 Essential (primary) hypertension; E11.9 Type 2 diabetes mellitus without complications; F10.10 Alcohol abuse, uncomplicated; M54.12 Radiculopathy, cervical region; K21.9 Gastro-esophageal reflux disease without esophagitis; F17.200 Nicotine dependence, unspecified, uncomplicated; D72.829 Elevated white blood cell count, unspecified; W01.0XXA Fall on same level from slipping, tripping and stumbling without subsequent striking against object, initial encounter; Y92.098 Other place in other non-institutional residence as the place of occurrence of the external cause; F19.20 Other psychoactive substance dependence, uncomplicated
CPT/HCPCS: 36415; 70450-TC; 71045-TC-FY; 72125-TC; 72128-TC; 72131-TC; 72141-TC; 72170-TC-FY; 73521-TC-FY; 73562-TC-RT-FY; 80053; 83735; 84100; 85025; 85610; 85730; 86850; 86900; 86901; 93005; 93010; 99285-25; C9803-CS; U0003; U0005

== ENCOUNTER 2022-10-20 03:10 | Inpatient (IN) | payer OTHER ==
[2022-10-20 04:17] VITALS: BMI 25.2
[2022-10-20] MEDS ORDERED: BISMUTH SUBSALICYLATE 524 MG/30 ML PO PRN (04:42)
[2022-10-20] MEDS ORDERED: NICOTINE POLACRILEX 2 MG GUM BUC PRN (04:42)
[2022-10-20] MEDS ORDERED: IBUPROFEN 400 MG TABLET (FP) PO PRN (04:42)
[2022-10-20] MEDS ORDERED: MAG HYDROX/AL HYDROX/SIMETH 30 ML UNIT-DOSE CUP PO PRN (04:42)
[2022-10-20] MEDS ORDERED: DICYCLOMINE HCL 10 MG CAPSULE PO PRN (04:42)
[2022-10-20] MEDS ORDERED: IBUPROFEN 600 MG TABLET (FP) PO PRN (04:42)
[2022-10-20] MEDS ORDERED: NALOXONE HCL (KLOXXADO) 8 MG SPRAY NS PRN (04:42)
[2022-10-20] MEDS ORDERED: MAGNESIUM HYDROX 2400MG/30ML ORAL SUSPENSION 30 ML CUP PO PRN (04:42)
[2022-10-20] MEDS ORDERED: ONDANSETRON *ODT* 4 MG TABLET SL PRN (04:42)
[2022-10-20] MEDS ORDERED: ACETAMINOPHEN 325 MG TABLET (FP) PO PRN ×2 (04:42)
[2022-10-20] MEDS ORDERED: hydrOXYzine PAMOATE 25 MG CAPSULE (FP) PO PRN (04:42)
[2022-10-20] MEDS ORDERED: POLYETHYLENE GLYCOL (HEALTHYLAX) 3350 17 GM PACKET PO PRN (04:42)
[2022-10-20] MEDS ORDERED: LOPERAMIDE HCL 2 MG CAPSULE PO PRN (04:42)
[2022-10-20] MEDS ORDERED: BENZOCAINE/MENTHOL (CHLORASEPTIC ) LOZENGE MM PRN (04:42)
[2022-10-20] MEDS: PRENATAL VITAMINS W/ FOLIC ACID TABLET (FP) PO SCH (09:58)
[2022-10-20] MEDS: NICOTINE 14 MG/24 HOURS TOPICAL PATCH TD SCH (09:58)
[2022-10-20] MEDS ORDERED: THIAMINE HCL 100 MG TABLET (FP) PO SCH (22:00)
[2022-10-20] MEDS ORDERED: MELATONIN 5 MG TABLETS PO SCH (22:00)
[2022-10-21 06:46] VITALS: RESP 18
[2022-10-21] MEDS: PRENATAL VITAMINS W/ FOLIC ACID TABLET (FP) PO SCH (10:23)
[2022-10-21] MEDS: NICOTINE 14 MG/24 HOURS TOPICAL PATCH TD SCH (10:23)
[2022-10-21 12:36] LABS: HEMATOCRIT 43.5 % (35.4-49); HEMOGLOBIN 14.5 GM/dL (11.7-16.9); MCH 29.4 pg (25.7-33.7); MCHC 33.3 g/dl (32.0-35.9); MEAN CELL VOLUME 88.5 fl (80-96); MEAN PLT VOLUME 10.2 fl (7.5-11.1); PLATELET COUNT 176 10^3/uL (134-434); RBC 4.92 M/mm3 (4.00-5.60); RDW 13.9 % (11.9-15.9); WHITE BLOOD COUNT 6.6 K/mm3 (4.0-10.0)
[2022-10-21 12:55] VITALS: BP 135/94; PULSE 77; TEMP 96.1
[2022-10-21 13:00] LABS: ALBUMIN 3.2 g/dl (3.4-5.0); BLOOD UREA NITROGEN 24.9 mg/dL (7-18)
[2022-10-21 13:03] LABS: CREATININE 1.5 mg/dL (0.55-1.3)
[2022-10-21 13:04] LABS: BILIRUBIN,TOTAL 0.5 mg/dL (0.2-1); TOT PROT 5.9 g/dl (6.4-8.2)
== END 2022-10-21 13:03 | disposition home or self-care (01) | DRG 774 ==
LOC: YASAS 03:10 → UNDOADMIN 05:09 → Y3N 05:09 → Y6N 05:14
PROVIDERS: ADMIT Allergy & Immunology; ATTEND Surgery
PROC: HZ2ZZZZ Detoxification Services for Substance Abuse Treatment (ICD-10-PCS; principal; 2022-10-20)
DX: F10.230 Alcohol dependence with withdrawal, uncomplicated (principal); F14.20 Cocaine dependence, uncomplicated; F17.210 Nicotine dependence, cigarettes, uncomplicated; F19.24 Other psychoactive substance dependence with psychoactive substance-induced mood disorder; I10 Essential (primary) hypertension; E78.5 Hyperlipidemia, unspecified; E11.9 Type 2 diabetes mellitus without complications; Z79.84 Long term (current) use of oral hypoglycemic drugs; K21.9 Gastro-esophageal reflux disease without esophagitis; M54.2 Cervicalgia; Z98.890 Other specified postprocedural states; Z91.81 History of falling; Z59.00 Homelessness unspecified; Z86.19 Personal history of other infectious and parasitic diseases
CPT/HCPCS: 36415; 80053; 82962; 85027; 86593; 86780; 87811; C9803-CS; U0003; U0005

== ENCOUNTER 2024-07-07 18:45 | Inpatient (IN) | payer OTHER ==
[2024-07-07 19:22] VITALS: BMI 23.0
[2024-07-07] MEDS ORDERED: LOPERAMIDE HCL 2 MG CAPSULE PO PRN (21:28)
[2024-07-07] MEDS ORDERED: NICOTINE POLACRILEX 2 MG LOZENGE BC PRN (21:28)
[2024-07-07] MEDS ORDERED: IBUPROFEN 400 MG TABLET (FP) PO PRN (21:28)
[2024-07-07] MEDS ORDERED: ACETAMINOPHEN 325 MG TABLET (FP) PO PRN (21:28)
[2024-07-07] MEDS ORDERED: P-EPHED 60MG/TRIPROLIDI 2.5MG TABLET PO PRN (21:28)
[2024-07-07] MEDS ORDERED: MAGNESIUM HYDROX 2400MG/30ML ORAL SUSPENSION 30 ML CUP PO PRN (21:28)
[2024-07-07] MEDS ORDERED: MAG HYDROX/AL HYDROX/SIMETH 30 ML UNIT-DOSE CUP PO PRN (21:28)
[2024-07-07] MEDS ORDERED: guaiFENesin 600 MG TABLET.ER (FP) PO PRN (21:28)
[2024-07-07] MEDS ORDERED: ONDANSETRON *ODT* 4 MG TABLET SL PRN (21:28)
[2024-07-07] MEDS ORDERED: POLYETHYLENE GLYCOL (HEALTHYLAX) 3350 17 GM PACKET PO PRN (21:28)
[2024-07-07] MEDS ORDERED: IBUPROFEN 600 MG TABLET (FP) PO PRN (21:28)
[2024-07-07] MEDS ORDERED: NICOTINE POLACRILEX 2 MG GUM BUC PRN (21:28)
[2024-07-07] MEDS ORDERED: NALOXONE (NARCAN) HCL 4 MG/0.1 ML SPRAY NS PRN (21:28)
[2024-07-07] MEDS ORDERED: BENZONATATE 200 MG CAPSULE PO PRN (21:28)
[2024-07-07] MEDS ORDERED: BISMUTH SUBSALICYLATE 524 MG/30 ML PO PRN (21:28)
[2024-07-07] MEDS ORDERED: BENZOCAINE/MENTHOL (CHLORASEPTIC ) LOZENGE MM PRN (21:28)
[2024-07-07] MEDS: THIAMINE 100 MG TABLET PO SCH (23:13)
[2024-07-07] MEDS: MELATONIN 5 MG TABLETS PO SCH (23:13)
[2024-07-08] MEDS: METHOCARBAMOL 500 MG TABLET PO PRN (06:26)
[2024-07-08] MEDS ORDERED: cloNIDine HCL 0.1 MG TABLET PO PRN (08:58)
[2024-07-08 09:16] VITALS: BP 155/80; PULSE 60; RESP 17; TEMP 98.4
[2024-07-08] MEDS: methaDONE HCL 10 MG TABLET (FOR DETOX USE ONLY) PO ONE (10:20)
[2024-07-08] MEDS: PRENATAL VITAMINS W/ FOLIC ACID TABLET (FP) PO SCH (10:20)
[2024-07-08] MEDS: amLODIPine BESYLATE 10 MG TABLET (FP) PO SCH (10:20)
[2024-07-08] MEDS ORDERED: metFORMIN HCL 500 MG TABLET (FP) PO SCH (11:00)
[2024-07-08 12:32] LABS: HEMATOCRIT 44.4 % (35.4-49); HEMOGLOBIN 14.5 GM/dL (11.7-16.9); MCH 28.2 pg (25.7-33.7); MCHC 32.6 g/dl (32.0-35.9); MEAN CELL VOLUME 86.5 fl (80-96); MEAN PLT VOLUME 9.8 fl (7.5-11.1); PLATELET COUNT 174 10^3/uL (134-434); RBC 5.13 M/mm3 (4.00-5.60); RDW 14.5 % (11.9-15.9); WHITE BLOOD COUNT 8.8 K/mm3 (4.0-10.0)
[2024-07-08 12:35] LABS: ALBUMIN 3.2 g/dl (3.4-5.0); BLOOD UREA NITROGEN 14.9 mg/dL (7-18)
[2024-07-08 12:38] LABS: CALCIUM 9.3 mg/dL (8.5-10.1)
[2024-07-08 12:39] LABS: CREATININE 1.1 mg/dL (0.55-1.3)
[2024-07-08 12:40] LABS: BILIRUBIN,TOTAL 0.6 mg/dL (0.2-1)
[2024-07-10] MEDS ORDERED: methaDONE HCL 10 MG TABLET (FOR DETOX USE ONLY) PO ONE (10:00)
[2024-07-12] MEDS ORDERED: methaDONE HCL 10 MG TABLET (FOR DETOX USE ONLY) PO ONE (10:00)
== END 2024-07-08 10:15 | disposition left against medical advice (07) | DRG 770 ==
LOC: YASAS 18:45 → Y3N 21:45
PROVIDERS: ADMIT Allergy & Immunology; ATTEND Surgery
PROC: HZ2ZZZZ Detoxification Services for Substance Abuse Treatment (ICD-10-PCS; principal; 2024-07-07)
DX: F11.23 Opioid dependence with withdrawal (principal); F14.20 Cocaine dependence, uncomplicated; F17.210 Nicotine dependence, cigarettes, uncomplicated; F41.9 Anxiety disorder, unspecified; F32.A Depression, unspecified; I10 Essential (primary) hypertension; K21.9 Gastro-esophageal reflux disease without esophagitis; E78.5 Hyperlipidemia, unspecified; E11.9 Type 2 diabetes mellitus without complications; Z79.84 Long term (current) use of oral hypoglycemic drugs
CPT/HCPCS: 36415; 80053; 80305; 80307; 82962; 85027; 86593; 86780; 93005; 93010